=== PATIENT | female | born 1985 | race African-American/Black ===

== ENCOUNTER 2021-01-12 19:22 | Emergency (ER) | payer SELFPAY ==
[2021-01-12] MEDS ORDERED: Lidocaine Viscous Sol 2% 15 ml UD Cup ONE (19:55)
[2021-01-12] MEDS ORDERED: Dexamethasone 10 MG/ML VIAL ONE (19:55)
== END 2021-01-12 20:43 | disposition home or self-care (01) ==
LOC: CSHERS 19:22
DX: J02.9 Acute pharyngitis, unspecified (principal); R13.13 Dysphagia, pharyngeal phase; F17.210 Nicotine dependence, cigarettes, uncomplicated
CPT/HCPCS: 87081; 87430; 99283; J1100

== ENCOUNTER 2022-01-23 00:41 | Emergency (ER) | payer SELFPAY ==
[2022-01-23] MEDS ORDERED: Ketorolac Tromethamine 30 MG/ML VIAL ONE (02:58)
[2022-01-23] MEDS ORDERED: Ondansetron PF 4 MG/2 ML Vial ONE (02:58)
[2022-01-23] MEDS ORDERED: Magnesium 2 GM/50 ML BAG (IN WATER) ONE (02:58)
[2022-01-23] MEDS ORDERED: Dexamethasone 20 MG/5 ML VIAL ONE (03:01)
== END 2022-01-23 04:30 | disposition home or self-care (01) ==
LOC: CSHERS 00:41
DX: R07.89 Other chest pain (principal); R51.9 Headache, unspecified; F17.210 Nicotine dependence, cigarettes, uncomplicated
CPT/HCPCS: 93005; 96365; 96375; J1100; J1885; J2405; J3475

== ENCOUNTER 2022-03-01 15:54 | Emergency (ER) | payer SELFPAY | END 2022-03-01 18:19 | disposition left against medical advice (07) | LOC: CSHERS 15:54 | DX: Z53.21 Procedure and treatment not carried out due to patient leaving prior to being seen by health care provider (principal) ==

== ENCOUNTER 2023-09-18 20:26 | Emergency (ER) | payer SELFPAY ==
[2023-09-18 20:55] LABS: Bilirubin Neg (Negative); Blood, Urine 25 (Negative); Clarity Slightly Cloudy (Clear); Glucose, Urine (Dipstick) Normal (Negative); Ketone, Urine Negative (Negative); Leukocyte 500 (Negative); Nitrite Negative (Negative); Protein, Urine (Dipstick) 30 mg/dl (Neg-Trace); Specific Gravity, Urine 1.005 (1.005-1.030)
[2023-09-18 20:56] LABS: Pregnancy Test - Urine (BHCG) Negative (Negative); Pregu Control Background? CLEAR/WHITE (CLR/WHITE); Pregu Control Bar Appear? YES (CONTROL BAR); Specific Gravity 1.005 (1.002-1.036)
[2023-09-18] MEDS ORDERED: Ketorolac Tromethamine 30 MG (1 mL) VIAL ONE (21:07)
[2023-09-18 21:08] LABS: CAUTI Indications for Culture Pelvic or flank pain; WBC/HPF 21-50 HPF (0-3)
[2023-09-18 21:10] LABS: Bacteria/HPF 2+ HPF (None Seen)
[2023-09-18 21:11] LABS: Urine Culture Reflex Yes Yes
[2023-09-18] MEDS ORDERED: cefTRIAXone (ROCEPHIN) 500 MG VIAL ONE (23:16)
[2023-09-18] MEDS ORDERED: Sterile Water 10 ML ONE (23:16)
== END 2023-09-18 23:51 | disposition home or self-care (01) ==
LOC: CSHERS 20:26
DX: N73.9 Female pelvic inflammatory disease, unspecified (principal); F17.290 Nicotine dependence, other tobacco product, uncomplicated
CPT/HCPCS: 76856; 81001; 81025; 87086; 96372; J0696; J1885